=== PATIENT | female | born 1935 | race Caucasian/White ===

== ENCOUNTER 2016-11-25 21:21 | Inpatient (IN) | payer MEDICARE, BC ==
[~2016-11-25] VITALS: Ht 165.1 cm; Wt 78.0 kg
--- NOTE | 2016-11-25 21:30 | NUR ---
To bed 6 a 81 yo female bibra with c/o of syncopal episode while watching tv. Patient is alert oriented x1, no s/s of acute distress. Breathing even and unlabored. When asked, what brought her here, she said "I don't know what happen." VSS stable. Patient is reporting lightheadedness. Safety measures observed. Awaiting for er md escobar.
[2016-11-25] MEDS ORDERED: IV NS 0.9% 500 ML BAG IV ONE (22:00)
[2016-11-25] MEDS ORDERED: IV SET PRIMARY 1 EA INFUS.SET MC ONE (22:06)
[2016-11-25] MEDS ORDERED: IV NS 0.9% 500 ML IV ONE (22:06)
[2016-11-25 22:17] LABS: BASOPHILS % (AUTO) 0.5 % (0.0-2.0); EOSINOPHILS # (AUTO) 0.3 /CMM (0.0-0.7); EOSINOPHILS % (AUTO) 3.6 % (0.0-6.0); HEMATOCRIT 30 % (33-45); HEMOGLOBIN 10.1 g/dL (11.5-14.8); LYMPHOCYTES # (AUTO) 1.8 /CMM (0.8-4.8); LYMPHOCYTES % (AUTO) 21.3 % (20.0-44.0); MEAN CORPUSCULAR HEMOGLOBIN 32 PG (26.0-33.0); MEAN CORPUSCULAR HGB CONC 34 g/dl (31.0-36.0); MEAN CORPUSCULAR VOLUME 94 fL (82-100); MONOCYTES # (AUTO) 0.8 /CMM (0.1-1.30); MONOCYTES % (AUTO) 9.2 % (2.0-12.0); NEUTROPHILS # (AUTO) 5.4 /CMM (1.8-8.9); NEUTROPHILS % (AUTO) 65.4 % (43.0-81.0); PLATELET COUNT (AUTO) 190 /CMM (150-450); RDW COEFFICIENT OF VARIATION 14.1 (11.5-15.0); RED BLOOD CELL COUNT(AUTO) 3.17 MIL/uL (4.0-5.2); WHITE BLOOD COUNT (AUTO) 8.3 K/uL (4.3-11.0)
--- NOTE | 2016-11-25 22:22 | NUR ---
patient to ct.
[2016-11-25 22:28] LABS: CALCIUM, SERUM 8.8 mg/dL (8.5-10.1); CARBON DIOXIDE 26 mmol/L (21-32); CHLORIDE 105 mmol/L (98-107); CREATININE 1.6 mg/dL (0.6-1.3); GLUCOSE 128 mg/dL (74-106); POTASSIUM 4.4 mmol/L (3.5-5.1); SODIUM SERUM 140 mmol/L (136-145); UREA NITROGEN, BLOOD 29 mg/dL (7-18)
[2016-11-25 22:35] LABS: TROPONIN I < 0.017 ng/mL (0.00-0.056)
[2016-11-25 22:36] LABS: INR 1.04 (0.87-1.13); PROTHROMBIN TIME 11.2 SECS (9.5-12.7)
[2016-11-25 22:42] LABS: ALANINE AMINOTRANSFERASE 6 U/L (12-78); ALBUMIN 3.2 g/dL (3.4-5.0); ALKALINE PHOSPHATASE 108 U/L (46-116); ASPARTATE AMINOTRANSFERASE 18 U/L (15-37); BILIRUBIN,DIRECT 0.1 mg/dL (0.0-0.2); BILIRUBIN,TOTAL 0.3 mg/dL (0.2-1.0); TOTAL PROTEIN, SERUM 6.3 g/dL (6.4-8.2)
[2016-11-25] MEDS ORDERED: IV NS 0.9% 1,000 ML IV PRN (22:59)
[2016-11-25] MEDS ORDERED: Z GUARD REMEDY 2 OZ OINT TP PRN (23:00)
[2016-11-25] MEDS ORDERED: ACETAMINOPHEN 325 MG TABLET PO PRN (23:00)
[2016-11-25] MEDS ORDERED: MAG HYDROX/AL HYDROX/SIMETH 30 ML UDC PO PRN (23:00)
[2016-11-25] MEDS ORDERED: HYDROCODONE/APAP 5/325MG 1 EACH TABLET PO PRN (23:00)
[2016-11-25] MEDS ORDERED: MAGNESIUM HYDROXIDE 30 ML UDC PO PRN (23:00)
[2016-11-25] MEDS ORDERED: ZOLPIDEM TARTRATE 5 MG TABLET PO PRN (23:00)
[2016-11-25] MEDS ORDERED: ONDANSETRON HCL/PF 4 MG/2 ML VIAL IVP PRN (23:00)
--- NOTE | 2016-11-25 23:05 | NUR ---
Urine collected via in-out cath, patient emili well, clear yellow urine collected and sent to lab.
--- NOTE | 2016-11-25 23:09 | NUR ---
Report given to Sai FIGUEROA RN for becky.
[2016-11-25 23:15] LABS: MAGNESIUM 1.5 mg/dL (1.8-2.4); PHOSPHORUS 3.9 mg/dL (2.5-4.9)
[2016-11-25 23:20] VITALS: BP 149/57
--- NOTE | 2016-11-25 23:20 | NUR ---
Transported to [facility] via als protocol, no incident noted.
--- NOTE | 2016-11-25 23:20 | NUR ---
PLACEMENT SPECIALIST INITIAL NOTE RECEIVED REPORT FROM LANE COONEY. PT ARRIVED TO THE UNIT VIA GURNEY WITH ER STAFF. DAUGHTER AT BEDSIDE. PT A/A/O X3. LUNG SOUNDS DIMINISHED. BOWEL SOUNDS PRESENT, DIAPER INTACT. PULSES PRESENT. SKIN INTACT. IV PATENT AND INTACT. DISCUSSED MEDICATIONS WITH DAUGHTER, SUCH KEPPRA AND SINEMET. ACCORDING TO THE DAUGTHER PT IS ON THESE MEDICATION DUE TO METASTATIC MELANOMA THAT SHE RECEIVED TREATMENT FOR BY CHEMO/RADIATION. AFTER TREATMENTS PT DEVELOPED A TREMOR. THESES MEDICATIONS ARE USED TO TREAT HER SHAKING HANDS. MED RECON UPDATED. DR PIERCE MADE AWARE. WILL CONTINUE TO MONITOR. BED IN LOW LOCKED POSITION, CALL LIGHT WITHIN REACH.
[2016-11-25] MEDS ORDERED: LORAZEPAM INJ 2 MG/ML VIAL IV PRN (23:30)
[2016-11-25] MEDS ORDERED: hydrALAZINE HCL 25 MG TABLET PO PRN (23:30)
[2016-11-25 23:40] LABS: BILIRUBIN,URINE NEGATIVE (NEGATIVE); BLOOD, URINE NEGATIVE Ery/uL (NEGATIVE); COLOR,URINE YELLOW (YELLOW); KETONES,URINE NEGATIVE (NEGATIVE); LEUKOCYTE ESTERASE ,URINE NEGATIVE (NEGATIVE); NITRITE, URINE NEGATIVE (NEGATIVE); PROTEIN,URINE NEGATIVE (NEGATIVE); UGLUCOSE NEGATIVE (NEGATIVE); UROBILINOGEN,URINE 0.2 EU/dL (0.2)
[2016-11-25 23:42] LABS: APPEARANCE,URINE CLEAR (CLEAR)
[2016-11-26] VITALS (9 sets, daily range): BP systolic 111–149; BP diastolic 47–57
[2016-11-26] MEDS ORDERED: ATEN25TA PO (00:47)
[2016-11-26] MEDS ORDERED: RANO500T3 PO (00:47)
[2016-11-26] MEDS ORDERED: MEMA10TA PO (00:47)
[2016-11-26] MEDS ORDERED: CARB1TAB21 PO (00:47)
[2016-11-26] MEDS ORDERED: LEVE500T20 PO (00:47)
[2016-11-26] MEDS ORDERED: ATOR20TA PO (00:47)
[2016-11-26] MEDS ORDERED: ISOS60TA4 PO (00:47)
[2016-11-26] MEDS ORDERED: Magnesium 1GM/D5W 100ML PREMIX 100 ML IV ONE (01:27)
[2016-11-26] MEDS ORDERED: SECONDARY IV SET 1 EA INFUS.SET MC ONE (01:27)
[2016-11-26] MEDS ORDERED: IV NS 0.9% 1,000 ML ONE (01:27)
[2016-11-26] MEDS: Magnesium 1GM/D5W 100ML PREMIX 100 ML IV SCH ×3 (01:32→03:40)
[2016-11-26] MEDS ORDERED: Magnesium 1GM/D5W 100ML PREMIX 200 ML IV ONE (02:32)
[2016-11-26 05:20] LABS: BASOPHILS % (AUTO) 0.4 % (0.0-2.0); EOSINOPHILS # (AUTO) 0.2 /CMM (0.0-0.7); EOSINOPHILS % (AUTO) 2.1 % (0.0-6.0); HEMATOCRIT 27 % (33-45); HEMOGLOBIN 9.1 g/dL (11.5-14.8); MEAN CORPUSCULAR HEMOGLOBIN 32 PG (26.0-33.0); MEAN CORPUSCULAR HGB CONC 34 g/dl (31.0-36.0); MEAN CORPUSCULAR VOLUME 93 fL (82-100); MONOCYTES # (AUTO) 0.8 /CMM (0.1-1.30); MONOCYTES % (AUTO) 10.1 % (2.0-12.0); NEUTROPHILS # (AUTO) 5.2 /CMM (1.8-8.9); NEUTROPHILS % (AUTO) 63.4 % (43.0-81.0); PLATELET COUNT (AUTO) 171 /CMM (150-450); RDW COEFFICIENT OF VARIATION 13.7 (11.5-15.0); RED BLOOD CELL COUNT(AUTO) 2.89 MIL/uL (4.0-5.2); WHITE BLOOD COUNT (AUTO) 8.1 K/uL (4.3-11.0)
[2016-11-26 05:24] LABS: CALCIUM, SERUM 8.6 mg/dL (8.5-10.1); CREATININE 1.5 mg/dL (0.6-1.3); MAGNESIUM 2.5 mg/dL (1.8-2.4); PHOSPHORUS 3.7 mg/dL (2.5-4.9); POTASSIUM 4.4 mmol/L (3.5-5.1)
[2016-11-26 05:27] LABS: THYROID STIMULATING HORMONE 0.892 uIU/mL (0.358-3.74)
--- NOTE | 2016-11-26 07:00 | NUR ---
RN NOTE RECEIVED ON BED ,RESPIRATION EVEN AND UNLABORED, ON RA NO SOB NOTED, A/OX3 , ON TLE SB IN 60'S , DIAPER INTACT. PULSES PRESENT. SKIN INTACT. L AC AND R HAND IV SITE IV SITES CDI, NS AT 75CC/HR RUNNING WELL, SR UP x3, BED IN LOW LOCKED POSITION, CALL LIGHT WITHIN REACH , CONTINUE TO MONITOR PT CLOSELY AND NOTIFY MD FOR ANY SIGNIFICANT CHANGES.
[2016-11-26] MEDS: LEVETIRACETAM SOL (5 ML) 100 MG/ML UDC PO SCH ×2 (08:28→21:43)
[2016-11-26] MEDS: ATENOLOL 25 MG TABLET PO SCH ×2 (08:29→17:04)
[2016-11-26] MEDS: ISOSORBIDE MONONITRATE (30MG) 30 MG TAB.SR.24H PO SCH (08:29)
[2016-11-26] MEDS: CARBIDOPA/LEVODOPA 25/100 MG 1 UDTAB PO SCH ×4 (08:30→21:43)
[2016-11-26] MEDS: PANTOPRAZOLE 40 MG TABLET.DR PO SCH (08:30)
[2016-11-26] MEDS: MEMANTINE HCL 5 MG TABLET PO SCH (08:30)
[2016-11-26] MEDS ORDERED: ENOXAPARIN SODIUM 40 MG/0.4 ML DISP.SYRIN SQ SCH (09:00)
[2016-11-26 09:43] LABS: IRON, SERUM 42 ug/dl (50-175); TOTAL IRON BINDING CAPACITY 185 ug/dl (250-450)
[2016-11-26 09:57] LABS: FERRITIN 352 ng/mL (8-388)
[2016-11-26] MEDS: ASPIRIN 81 MG TAB.CHEW PO SCH (10:04)
[2016-11-26] MEDS: ENOXAPARIN SODIUM 30 MG/0.3 ML DISP.SYRIN SQ SCH (10:04)
--- NOTE | 2016-11-26 12:00 | NUR ---
RN NOTES REDNESS AND SMALL BLOODY DRAINAGE NOTED ON THE R HAND IV SITE , H/D DISCONTINUED.
[2016-11-26] MEDS: IV NS 0.9% 1,000 ML IV PRN (15:33)
--- NOTE | 2016-11-26 18:42 | NUR ---
RN NOTES PT STABLE , RESPIRATION EVEN AND UNLABORED, NS AT 125CC/HR RUNNING VIA R AC IV SITE WITHOUT ANY PROBLEM,, PT DENIES ANY DISTRESS , MEDICATED PER MD ORDER , NO SIGNIFICANT CHANGES NOTED ON THIS SHIFT .
--- NOTE | 2016-11-26 19:00 | NUR ---
MS RN OPENING NOTES RECEIVED PATIENT IN BED IN STABLE CONDITION, IV SITE INTACT WITH S/S OF INFILTRATION. NO S/S OF DISTRESS, NO S/S OF DISTRESS NO SOB, NO CHEST PAIN. NO COMPLAINS OF PAIN, SAFE FREE ENVIRONMENT PROVIDED FREE OF CLUTTERS, WILL CONTINUE TO MONITOR, ON LOW BED TO ENSURE SAFETY, CALL LIGHT WITHIN REACH.
[2016-11-26 20:21] LABS: CREATININE, URINE 38.9 MG/DL (30.0-125.0); URINE TOTAL PROTEIN 15.3 mg/dL (0-11.9)
[2016-11-26] MEDS ORDERED: ATORVASTATIN 40 MG TABLET PO SCH (22:00)
[2016-11-27] MEDS: IV NS 0.9% 1,000 ML IV PRN (00:08)
[2016-11-27 04:00] VITALS: BP 137/49
--- NOTE | 2016-11-27 06:22 | NUR ---
MS RN CLOSING NOTES PATIENT COMFORTABLY ASLEEP AND EASILY AWAKEN, HEAD OF BED ELEVATED FOR BETTER LUNG EXPANSION. IV HYDRATION ONGOING NS AT 125 CC/HR, IV SITE NO S/S OF INFILTRATED, PATIENT DENIES PAIN AT THIS TIME. 0/10 RESPIRATIONS EVEN AND UNLABORED.NO S/S OF ACUTE DISTRESS, NO SOB, NO COUGH, NO CONGESTION, SKIN WARM AND DRY TO TOUCH, AFEBRILE, ALL NURSING CARE NEEDS PROVIDED AND RENDERED, NEEDS ATTENDED AND ANTICIPATED, KEPT CLEAN AND DRY AND COMFORTABLE, BLADDER NOT DISTENDED, GOOD SKIN CARE PROVIDED. ABDOMEN SOFT AND NON TENDER. NO C/O OF CONSTIPATION. ALL DUE MEDS WAS GIVEN TOLERATED. FREQUENT VISUAL CHECK DONE FOR SAFETY EVERY 2 HOURS. SAFE HAZARD FREE ENVIRONMENT PROVIDED. CALL LIGHT WITHIN EASY TO REACH, ON LOW BED AT ALL TIMES TO ENSURE SAFETY, WILL ENDORSE TO THE NEXT SHIFT CONTINUE PLAN OF CARE
[2016-11-27 06:23] LABS: BASOPHILS % (AUTO) 0.4 % (0.0-2.0); EOSINOPHILS # (AUTO) 0.3 /CMM (0.0-0.7); EOSINOPHILS % (AUTO) 3.8 % (0.0-6.0); HEMATOCRIT 29 % (33-45); HEMOGLOBIN 9.6 g/dL (11.5-14.8); LYMPHOCYTES # (AUTO) 1.7 /CMM (0.8-4.8); LYMPHOCYTES % (AUTO) 24.4 % (20.0-44.0); MEAN CORPUSCULAR HEMOGLOBIN 32 PG (26.0-33.0); MEAN CORPUSCULAR HGB CONC 34 g/dl (31.0-36.0); MEAN CORPUSCULAR VOLUME 93 fL (82-100); MONOCYTES # (AUTO) 0.7 /CMM (0.1-1.30); MONOCYTES % (AUTO) 9.4 % (2.0-12.0); NEUTROPHILS # (AUTO) 4.4 /CMM (1.8-8.9); PLATELET COUNT (AUTO) 168 /CMM (150-450); RDW COEFFICIENT OF VARIATION 13.7 (11.5-15.0); RED BLOOD CELL COUNT(AUTO) 3.06 MIL/uL (4.0-5.2); WHITE BLOOD COUNT (AUTO) 7.1 K/uL (4.3-11.0)
[2016-11-27 07:41] LABS: ALBUMIN 3.1 g/dL (3.4-5.0); BILIRUBIN,TOTAL 0.3 mg/dL (0.2-1.0); CALCIUM, SERUM 8.3 mg/dL (8.5-10.1); CREATININE 1.4 mg/dL (0.6-1.3); MAGNESIUM 1.9 mg/dL (1.8-2.4); PHOSPHORUS 3.5 mg/dL (2.5-4.9); POTASSIUM 3.8 mmol/L (3.5-5.1); TOTAL PROTEIN, SERUM 5.9 g/dL (6.4-8.2)
[2016-11-27 08:00] VITALS: BP 132/46
--- NOTE | 2016-11-27 08:00 | NUR ---
ms rn note patient in bed . all needs attended , not in acute distress ,having breakfast , able to eat self, bed in lowest and locked position , on ra no sob noted , call ligh within reach , plan of care discussed with patient , on ivf as ordered, hl on lac intact, no s\s infection noted , will cont to monitor closely
[2016-11-27] MEDS: PANTOPRAZOLE 40 MG TABLET.DR PO SCH (08:05)
[2016-11-27] MEDS: LEVETIRACETAM SOL (5 ML) 100 MG/ML UDC PO SCH (08:05)
[2016-11-27] MEDS: CARBIDOPA/LEVODOPA 25/100 MG 1 UDTAB PO SCH ×3 (08:05→16:33)
[2016-11-27] MEDS: ASPIRIN 81 MG TAB.CHEW PO SCH (08:05)
[2016-11-27] MEDS: ATENOLOL 25 MG TABLET PO SCH ×2 (08:06→16:33)
[2016-11-27] MEDS: ISOSORBIDE MONONITRATE (30MG) 30 MG TAB.SR.24H PO SCH (08:07)
[2016-11-27] MEDS: ENOXAPARIN SODIUM 30 MG/0.3 ML DISP.SYRIN SQ SCH (08:08)
[2016-11-27] MEDS: MEMANTINE HCL 5 MG TABLET PO SCH (08:12)
--- NOTE | 2016-11-27 12:00 | NUR ---
MS RN NOTE HAVING LUNCH , ABLE TO EAT SELF ALL NEEDS ATTENDED
--- NOTE | 2016-11-27 13:54 | NUR ---
MS RN NOTE SEEN BY PT , ABLE TO SIT UP FROM BED TO STAND UP WITH MAX ASSISTANCE, KEEP CLEAN DRY , NOT IN ACUTE DISTRESS
--- NOTE | 2016-11-27 15:33 | NUR ---
MS RN NOTE SPOKE WITH DR FERNANDO PHILIP PATIENT WILL BE DISCHARGE
--- NOTE | 2016-11-27 16:27 | NUR ---
MS RN NOTE CALLED TO FACILITY SPOKE WITH KATTY THEODORE REPORT GIVEN , CALLED DAUGHTER LEFT A MASSAGE THAT PATENT WILL BE DISCHARGE AT 1700
[2016-11-27 16:33] VITALS: BP 121/55
--- NOTE | 2016-11-27 17:19 | NUR ---
MS RN NOTE AMBULANCE ARRIVED REPORT GIVEN ,TAKEN TO FACILITY WITH STABLE CONDITION, CALLED TO DAUGHTER ANYA X 2 ,LEFT A MASSAGE THAT PATIENT WILL BE D\C AT 1700
== END 2016-11-27 17:31 | DRG 73 ==
LOC: ER 21:25 → TELE-TD 22:34 → TELE1 23:31 → MEDSG1 11-26 10:53
PROVIDERS: ADMIT Internal Medicine; ATTEND Internal Medicine
DX: G90.8 Other disorders of autonomic nervous system (principal); N17.0 Acute kidney failure with tubular necrosis; G45.9 Transient cerebral ischemic attack, unspecified; E44.0 Moderate protein-calorie malnutrition; N18.4 Chronic kidney disease, stage 4 (severe); C78.7 Secondary malignant neoplasm of liver and intrahepatic bile duct; C79.31 Secondary malignant neoplasm of brain; J98.11 Atelectasis; Z86.73 Personal history of transient ischemic attack (TIA), and cerebral infarction without residual deficits; G40.909 Epilepsy, unspecified, not intractable, without status epilepticus; I12.9 Hypertensive chronic kidney disease with stage 1 through stage 4 chronic kidney disease, or unspecified chronic kidney disease; E78.5 Hyperlipidemia, unspecified; K21.9 Gastro-esophageal reflux disease without esophagitis; Z96.649 Presence of unspecified artificial hip joint; F03.90 Unspecified dementia, unspecified severity, without behavioral disturbance, psychotic disturbance, mood disturbance, and anxiety; Z92.3 Personal history of irradiation; D64.9 Anemia, unspecified; G20 Parkinson's disease; C43.9 Malignant melanoma of skin, unspecified; Z68.28 Body mass index [BMI] 28.0-28.9, adult
CPT/HCPCS: 36415; 70450-TC; 71010-TC; 80048-TC; 80053-TC; 80061-TC; 80076-TC; 81000-TC; 82570-TC; 82728-TC; 83540-TC; 83735-TC; 84100-TC; 84155-TC; 84300-TC; 84443-TC; 84484-TC; 85025-TC; 85730-TC; 86850-TC; 87040-TC; 87081-TC; 93307-TC; 93880-TC; 97001-TC; 97110-TC; 97530-TC; J1650; J1953; J3475; J7030; J7040

== ENCOUNTER 2016-11-29 15:09 | Emergency (ER) | payer MEDICARE, BC ==
[~2016-11-29] VITALS: Ht 162.6 cm; Wt 75.7 kg
[~2016-11-29 15:09] MED LIST: ATEN25TA PO; ATOR20TA PO; CARB1TAB21 PO; ISOS60TA4 PO; LEVE500T20 PO; MEMA10TA PO; RANO500T3 PO
--- NOTE | 2016-11-29 15:15 | NUR ---
LEO 89 FROM [facility] C/O SYNCOPAL EPISODE, NO TRAUMA. NAD NOTED. VSS. SAFETY AND COMFORT MEASURES PROVIDED. WILL MONITOR.
--- NOTE | 2016-11-29 15:40 | NUR ---
Patient is resting comfortably in bed with eyes closed. Easily aroused. VSS
[2016-11-29 16:08] LABS: BASOPHILS % (AUTO) 0.3 % (0.0-2.0); EOSINOPHILS # (AUTO) 0.2 /CMM (0.0-0.7); EOSINOPHILS % (AUTO) 2.3 % (0.0-6.0); HEMATOCRIT 33 % (33-45); HEMOGLOBIN 10.9 g/dL (11.5-14.8); LYMPHOCYTES # (AUTO) 1.1 /CMM (0.8-4.8); LYMPHOCYTES % (AUTO) 12.9 % (20.0-44.0); MEAN CORPUSCULAR HEMOGLOBIN 31 PG (26.0-33.0); MEAN CORPUSCULAR HGB CONC 33 g/dl (31.0-36.0); MEAN CORPUSCULAR VOLUME 93 fL (82-100); MONOCYTES # (AUTO) 0.6 /CMM (0.1-1.30); MONOCYTES % (AUTO) 7.1 % (2.0-12.0); NEUTROPHILS % (AUTO) 77.4 % (43.0-81.0); PLATELET COUNT (AUTO) 198 /CMM (150-450); RED BLOOD CELL COUNT(AUTO) 3.54 MIL/uL (4.0-5.2); WHITE BLOOD COUNT (AUTO) 8.9 K/uL (4.3-11.0)
[2016-11-29 16:18] LABS: CALCIUM, SERUM 8.9 mg/dL (8.5-10.1); CARBON DIOXIDE 27 mmol/L (21-32); CHLORIDE 107 mmol/L (98-107); CREATININE 1.5 mg/dL (0.6-1.3); GLUCOSE 103 mg/dL (74-106); POTASSIUM 4.4 mmol/L (3.5-5.1); SODIUM SERUM 141 mmol/L (136-145); UREA NITROGEN, BLOOD 27 mg/dL (7-18)
[2016-11-29 16:21] LABS: INR 1.08 (0.87-1.13); PROTHROMBIN TIME 11.2 SECS (9.5-12.7)
[2016-11-29 16:30] LABS: TROPONIN I < 0.017 ng/mL (0.00-0.056)
--- NOTE | 2016-11-29 17:01 | NUR ---
ETA 1900
--- NOTE | 2016-11-29 17:02 | NUR ---
[facility]
--- NOTE | 2016-11-29 17:10 | NUR ---
Patient discharged to home in stable condition. Written and verbal after care instructions given. Patient verbalizes understanding of instruction.IV removed. Catheter intact and site benign. Pressure and 4x4 applied to site. No bleeding noted.
--- NOTE | 2016-11-29 17:11 | NUR ---
CANCELLED AMBULANCE - PT BEING TRANSPORTED BY FAMILY
[2016-11-29 17:59] VITALS: BP 130/71
== END 2016-11-29 18:00 | disposition home or self-care (01) ==
LOC: ER 15:14
DX: R55 Syncope and collapse (principal); E78.5 Hyperlipidemia, unspecified; I10 Essential (primary) hypertension
CPT/HCPCS: 36415; 71010; 80048; 84484; 85025; 85730; 93005; 99285; A4606; Z7610

== ENCOUNTER 2017-01-21 11:23 | Inpatient (IN) | payer MEDICARE, BC ==
[~2017-01-21] VITALS: Ht 162.6 cm; Wt 72.6 kg
[2017-01-21] MEDS: PROSOURCE / PROSTAT (PYXIS) 30 ML UDC PO SCH (09:00)
--- NOTE | 2017-01-21 11:30 | NUR ---
BIB RA 90 FROM A CARE FACILITY S/P SYNCOPE. PER REPORT PT WAS ASSISTED FROM THE GROUND. PT AAOX3. DENIES PAIN AT THIS TIME. VSS. SEEN BY MD FOR EVAL. SAFETY AND COMFORT MEASURES PROVIDED. WILL MONITOR.
--- NOTE | 2017-01-21 11:50 | NUR ---
IV ACCESS STARTED. PONY CYLINDER PRESS OPERATOR AT FOR BLOOD DRAW. URINE SAMPLE OBTAINED, SENT.
[2017-01-21] MEDS ORDERED: IV NS 0.9% 1,000 ML BAG IV ONE (12:00)
[2017-01-21 12:09] LABS: BASOPHILS % (AUTO) 0.4 % (0.0-2.0); EOSINOPHILS # (AUTO) 0.4 /CMM (0.0-0.7); EOSINOPHILS % (AUTO) 5.8 % (0.0-6.0); HEMATOCRIT 29 % (33-45); HEMOGLOBIN 9.3 g/dL (11.5-14.8); LYMPHOCYTES # (AUTO) 1.2 /CMM (0.8-4.8); LYMPHOCYTES % (AUTO) 19.3 % (20.0-44.0); MEAN CORPUSCULAR HEMOGLOBIN 29 PG (26.0-33.0); MEAN CORPUSCULAR HGB CONC 32 g/dl (31.0-36.0); MEAN CORPUSCULAR VOLUME 90 fL (82-100); MONOCYTES # (AUTO) 0.6 /CMM (0.1-1.30); MONOCYTES % (AUTO) 9.4 % (2.0-12.0); NEUTROPHILS # (AUTO) 3.9 /CMM (1.8-8.9); NEUTROPHILS % (AUTO) 65.1 % (43.0-81.0); PLATELET COUNT (AUTO) 309 /CMM (150-450); RDW COEFFICIENT OF VARIATION 12.1 (11.5-15.0); RED BLOOD CELL COUNT(AUTO) 3.21 MIL/uL (4.0-5.2); WHITE BLOOD COUNT (AUTO) 6.1 K/uL (4.3-11.0)
[2017-01-21] MEDS ORDERED: IV NS 0.9% 1,000 ML ONE (12:11)
[2017-01-21] MEDS ORDERED: IV SET PRIMARY PUMP SET 1 EA INFUS.SET MC ONE ×2 (12:12→15:36)
[2017-01-21 12:18] LABS: CALCIUM, SERUM 8.8 mg/dL (8.5-10.1); CARBON DIOXIDE 30 mmol/L (21-32); CHLORIDE 105 mmol/L (98-107); CREATININE 1.2 mg/dL (0.6-1.3); GLUCOSE 100 mg/dL (74-106); POTASSIUM 4.3 mmol/L (3.5-5.1); SODIUM SERUM 140 mmol/L (136-145); UREA NITROGEN, BLOOD 19 mg/dL (7-18)
--- NOTE | 2017-01-21 12:20 | NUR ---
PT TAKEN TO CT.
[2017-01-21 12:22] LABS: BILIRUBIN,URINE Negative (NEGATIVE); BLOOD, URINE Negative Ery/uL (NEGATIVE); KETONES,URINE Negative (NEGATIVE); LEUKOCYTE ESTERASE ,URINE Negative (NEGATIVE); NITRITE, URINE Negative (NEGATIVE); PH,URINE 8.5 (5.0-8.0); PROTEIN,URINE Trace mg/dl (NEGATIVE); UGLUCOSE Negative (NEGATIVE); UROBILINOGEN,URINE 0.2 EU/dL (0.2)
[2017-01-21 12:27] LABS: TROPONIN I < 0.017 ng/mL (0.00-0.056)
[2017-01-21 12:28] LABS: APPEARANCE,URINE Hazy (CLEAR); COLOR,URINE Dark Yellow (YELLOW)
[2017-01-21] MEDS ORDERED: ISOS120T9 PO (12:30)
[2017-01-21] MEDS ORDERED: AMLO2.5T PO (12:30)
[2017-01-21] MEDS ORDERED: AMIN30LI4 PO (12:30)
[2017-01-21] MEDS ORDERED: LEVE250T2 PO (12:30)
[2017-01-21] MEDS ORDERED: CLOP75TA2 PO (12:30)
[2017-01-21] MEDS ORDERED: ATOR40TA PO (12:30)
[2017-01-21] MEDS ORDERED: SERT25TA5 PO (12:30)
[2017-01-21] MEDS ORDERED: MULT-659 PO (12:30)
[2017-01-21] MEDS ORDERED: MAGN400T26 PO (12:30)
[2017-01-21] MEDS ORDERED: MAGN400O6 PO (12:33)
[2017-01-21] MEDS ORDERED: ZINC220C8 PO (12:33)
[2017-01-21] MEDS ORDERED: NA P133E RC (12:33)
[2017-01-21] MEDS ORDERED: ASCO500T9 PO (12:33)
[2017-01-21] MEDS ORDERED: CHOL100044 PO (12:33)
[2017-01-21] MEDS ORDERED: MECL-102 PO (12:33)
[2017-01-21] MEDS ORDERED: BISA10SU8 RC (12:33)
[2017-01-21] MEDS ORDERED: ACET-868 PO (12:33)
[2017-01-21 12:36] LABS: INR 1.07 (0.87-1.13); PROTHROMBIN TIME 11.1 SECS (9.5-12.7)
[2017-01-21 12:37] LABS: BACTERIA,URINE None seen /HPF (None Seen); MUCUS,URINE Few /LPF (None Seen); SQUAMOUS EPITHELIAL CELL,UR Few /HPF (None Seen)
--- NOTE | 2017-01-21 13:43 | NUR ---
CALLED (PCP), TRANSFERRED CALL TO
--- NOTE | 2017-01-21 13:56 | NUR ---
CALLED (PCP), TRANSFERRED CALL TO
--- NOTE | 2017-01-21 14:00 | NUR ---
DR.RUTHERFORD SAE OPERATOR GROUND BASED AIR DEFENCE
--- NOTE | 2017-01-21 14:02 | NUR ---
CALLED NURSING SUP. FOR TELE BED
--- NOTE | 2017-01-21 14:51 | NUR ---
REPORT GIVEN TO ERNESTO COONEY FOR TELE [phone]
[2017-01-21] MEDS ORDERED: ONDANSETRON HCL/PF 4 MG/2 ML VIAL IVP PRN (15:00)
[2017-01-21] MEDS ORDERED: BISACODYL SUPP (10 MG) 10 MG/SUPP.RECT SUPP.RECT RC PRN (15:00)
[2017-01-21] MEDS ORDERED: MECLIZINE HCL 25 MG TABLET PO PRN (15:00)
[2017-01-21] MEDS ORDERED: ACETAMINOPHEN 325 MG TABLET PO PRN ×2 (15:00)
[2017-01-21] MEDS ORDERED: NA PHOS,M-B/NA PHOS,DI-BA 1 EA ENEMA RC PRN (15:00)
[2017-01-21] MEDS ORDERED: Z GUARD REMEDY 2 OZ OINT TP PRN (15:00)
[2017-01-21] MEDS ORDERED: HYDROCODONE/APAP 5/325MG 1 EACH TABLET PO PRN (15:00)
[2017-01-21] MEDS ORDERED: MAGNESIUM HYDROXIDE 30 ML UDC PO PRN ×2 (15:00)
[2017-01-21] MEDS ORDERED: ZOLPIDEM TARTRATE 5 MG TABLET PO PRN (15:00)
[2017-01-21] MEDS ORDERED: MAG HYDROX/AL HYDROX/SIMETH 30 ML UDC PO PRN (15:00)
[2017-01-21 16:00] VITALS: BP 128/65
[2017-01-21] MEDS: LEVETIRACETAM (250 MG) 250 MG TABLET PO SCH (16:32)
[2017-01-21] MEDS: ENOXAPARIN SODIUM 30 MG/0.3 ML DISP.SYRIN SQ SCH (16:32)
[2017-01-21] MEDS: IV NS 0.9% 1,000 ML IV PRN (16:35)
[2017-01-21] MEDS ORDERED: RANOLAZINE 500 MG PO SCH (17:00)
--- NOTE | 2017-01-21 18:10 | NUR ---
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
--- NOTE | 2017-01-21 19:30 | NUR ---
OUTSIDE SALESMAN NOTES RECEIVED PATIENT IN BED AWAKE ALERT AND VERBALLY RESPONSIVE, IN NO APPARENT DISTRESS, NO SOB NOTED, DENIES PAIN. PATIENT NOTED WITH FACIAL DROOPING ON THE LEFT SIDE. IV LINE PATENT, INFUSING NS AT 75CC/HR. ALL NEEDS MET KEPT CLEAN AND DRY, CALL LIGHT WITHIN REACH.
[2017-01-21 20:00] VITALS: BP 134/62
--- NOTE | 2017-01-21 20:38 | NUR ---
REFUELING RAMP ATTENDANT NOTES DAUGHTER ZACHARIAH CAME TO VISIT THE PATENT AND PER DAUGHTER PATIENT HAS BEEN ON CHOPPED FOOD AND THICKENED LIQUIDS AFTER THE CVA. DAUGHTER REQUESTED FOR PATENT TO HAVE APPLE SAUCE, PATIENT TOLERATED WELL.
[2017-01-21] MEDS ORDERED: ATORVASTATIN 40 MG TABLET PO SCH (22:00)
[2017-01-22] VITALS (7 sets, daily range): BP systolic 122–134; BP diastolic 55–65
--- NOTE | 2017-01-22 04:21 | NUR ---
ADHESIVE BANDAGE MACHINE OPERATOR NOTES PATIENT IN SLEEPING, IN NO APPARENT DISTRESS, NO SOB NOTED. KEPT CLEAN AND DRY.
[2017-01-22] MEDS: IV NS 0.9% 1,000 ML IV PRN (04:31)
--- NOTE | 2017-01-22 06:49 | NUR ---
MANAGER MEETING MS NOTES. PATIENT IN NO APPARENT DISTRESS, DENIES SOB, DENIES PAIN. NPO EXCEPT MEDS, PENDING SWALLOW EVAL. PATIENT TOLERATES SWALLOWING MEDIATIONS MIXED WITH APPLE SAUCE WELL. IV LINE PATENT, INFUSING NS AT 75CC/HR. ALL NEEDS MET, KEPT CLEAN AND DRY.
[2017-01-22 07:01] LABS: BASOPHILS % (AUTO) 0.7 % (0.0-2.0); EOSINOPHILS # (AUTO) 0.3 /CMM (0.0-0.7); EOSINOPHILS % (AUTO) 4.9 % (0.0-6.0); HEMATOCRIT 27 % (33-45); HEMOGLOBIN 9.2 g/dL (11.5-14.8); LYMPHOCYTES # (AUTO) 1.6 /CMM (0.8-4.8); LYMPHOCYTES % (AUTO) 24.4 % (20.0-44.0); MEAN CORPUSCULAR HEMOGLOBIN 30 PG (26.0-33.0); MEAN CORPUSCULAR HGB CONC 34 g/dl (31.0-36.0); MEAN CORPUSCULAR VOLUME 89 fL (82-100); MONOCYTES # (AUTO) 0.6 /CMM (0.1-1.30); MONOCYTES % (AUTO) 9.6 % (2.0-12.0); NEUTROPHILS # (AUTO) 3.9 /CMM (1.8-8.9); NEUTROPHILS % (AUTO) 60.4 % (43.0-81.0); PLATELET COUNT (AUTO) 268 /CMM (150-450); RED BLOOD CELL COUNT(AUTO) 3.08 MIL/uL (4.0-5.2); WHITE BLOOD COUNT (AUTO) 6.4 K/uL (4.3-11.0)
[2017-01-22 07:22] LABS: CALCIUM, SERUM 8.2 mg/dL (8.5-10.1); CARBON DIOXIDE 26 mmol/L (21-32); CHLORIDE 105 mmol/L (98-107); CREATININE 1.1 mg/dL (0.6-1.3); GLUCOSE 75 mg/dL (74-106); MAGNESIUM 1.6 mg/dL (1.8-2.4); PHOSPHORUS 3.6 mg/dL (2.5-4.9); POTASSIUM 3.8 mmol/L (3.5-5.1); SODIUM SERUM 141 mmol/L (136-145); UREA NITROGEN, BLOOD 15 mg/dL (7-18)
[2017-01-22 07:31] LABS: CHOLESTEROL 144 mg/dL (<200); HDL CHOLESTEROL 33 mg/dL (40-60); LDL 77 mg/dL (0-99); TRIGLYCERIDES 134 mg/dL (30-150)
--- NOTE | 2017-01-22 07:55 | NUR ---
RN OPENING NOTES RECEIVED PATIENT IN BED ASLEEP WITH HEAD OF BED ELEVATED, NO SOB OR DISTRESS NOTED. PATIENT ON TELE MONITOR SR HEART RATE OF 76. ALERT AND ORIENTED TIMES . IV INTACT AND PATENT. KEPT PATIENT CLEAN AND COMFORTABLE IN BED, CALL LIGHT WITHIN PATIENT REACH, WILL CONTINUE TO MONITOR ACCORDINGLY.
[2017-01-22] MEDS ORDERED: CLOPIDOGREL BISULFATE 75 MG TABLET PO SCH (09:00)
--- NOTE | 2017-01-22 09:13 | NUR ---
WOUND CARE CONSULT: PT REFUSED TO TURN FOR SKIN ASSESSMENT. PT ON ISOFLEX LOW AIRLOSS BED. WILL SEE PT PT CONDITION PERMITS. DISCUSSED SKIN PROTECTION WITH NURSING STAFF. MD IN AGREEMENT WITH PLAN OF CARE.
[2017-01-22] MEDS: ZINC SULFATE 220 MG CAPSULE PO SCH (09:17)
[2017-01-22] MEDS: CHOLECALCIFEROL 1,000 UNIT TABLET (VIT D3) PO SCH (09:17)
[2017-01-22] MEDS: MULTIVIT, IRON, MIN NO. 8, FA 1 TAB TABLET PO SCH (09:23)
[2017-01-22] MEDS: MAGNESIUM OXIDE 400 MG TABLET PO SCH (09:23)
[2017-01-22] MEDS: SERTRALINE HCL 25 MG TABLET PO SCH (09:24)
[2017-01-22] MEDS: PANTOPRAZOLE 40 MG TABLET.DR PO SCH (09:24)
[2017-01-22] MEDS: LEVETIRACETAM (250 MG) 250 MG TABLET PO SCH ×2 (09:24→17:47)
[2017-01-22] MEDS: MEMANTINE HCL 5 MG TABLET PO SCH ×2 (09:24→17:47)
[2017-01-22] MEDS: PROSOURCE / PROSTAT (PYXIS) 30 ML UDC PO SCH (09:25)
[2017-01-22] MEDS ORDERED: IV SET PRIMARY PUMP SET 1 EA INFUS.SET MC ONE (12:19)
[2017-01-22] MEDS ORDERED: SECONDARY IV SET 1 EA INFUS.SET MC ONE (12:24)
[2017-01-22] MEDS: Magnesium 1GM/D5W 100ML PREMIX 100 ML IV SCH ×2 (12:28→14:24)
--- NOTE | 2017-01-22 13:00 | NUR ---
RN NOTES I ASKED THE SON IN LAW TO BRING THE HOME MEDICATION RANEXA PER PHARMACY'S REQUEST BECAUSE WE DO NOT CARRY THAT MEDICATION AND SON IN LAW AGREED TO BRING IT LATER TODAY.
--- NOTE | 2017-01-22 16:30 | NUR ---
RN NOTES SON IN LAW WILL COME TO SIGN FORMS TO CONSENT TO REQUEST PREVIOUS MRI'S. SON IN LAW ALSO STATED THAT PATIENT CAN NOT HAVE MRI WITH CONTRAST DUE TO LIVER FUNCTION.
--- NOTE | 2017-01-22 19:06 | NUR ---
RN CLOSING NOTES ALL NEEDS PROVIDED, ATTENDED, AND ANTICIPATED. ON TELE MONITOR SR HEART RATE 70. KEPT PATIENT CLEAN AND COMFORTABLE IN BED. CALL LIGHT WITHIN PATIENT REACH, WILL CONTINUE TO MONITOR ACCORDINGLY. ENDORSED TO NEXT SHIFT RN TO CONTINUE CARE.
--- NOTE | 2017-01-22 20:00 | NUR ---
MS RN NOTE RECEIVED PATIENT AWAKE AND ALERT X2 IN BED. NO RESPIRATORY DISTRESS OR SOB NOTED. DENIES ANY PAIN AT THIS TIME. NO SYNCOPE AT THIS TIME. IV SITE INTACT, WITH NO INFILTRATION NOTED. NECTAR THICK WATER AT BEDSIDE. FAMILY AT BEDSIDE. PROVIDED DAUGHTER WITH CONSENT FORM TO OBTAIN BRAIN MRI RESULTS FROM [facility]. CONSENT SIGNED BY DAUGHTER AND PLACED IN CHART. FAX TO MEDICAL RECORDS AT [facility] IN AM. FAMILY CONCERNED ABOUT PATIENT HAVING ANOTHER MRI OF THE BRAIN, SINCE SHE ALREADY HAD ON E IN NOVEMBER. CALLED TO INFORM HER. WAITING FOR CALL BACK. PATIENT COMFORTABLE AT THIS TIME. BED LOCKED AND IN LOWEST POSITION. SIDE RAILS UP, CALL LIGHT WITHIN REACH. WILL CONTINUE TO MONITOR.
--- NOTE | 2017-01-22 21:17 | NUR ---
Patient resides at the [facility] [phone]. She ambulates with assistive devices, rfequires min-mod assist with adl's.She has adequate DME,homehealth provided by [facility]. Family involved and supportive with plan of care Priscila (dtr) [phone] / Aroldo son in law [phone] Addendum: 01/22/17 at 2118 by KATTY LOYD RN Amended: Links added.
[2017-01-22] MEDS: ENOXAPARIN SODIUM 30 MG/0.3 ML DISP.SYRIN SQ SCH (22:06)
[2017-01-23 01:30] VITALS: BP 124/55
--- NOTE | 2017-01-23 06:20 | NUR ---
MS RN NOTE PATIENT STABLE. NO S/S OF SYNCOPE, RESPIRATORY DISTRESS, OR SOB. ALL NEEDS MET AND ATTENDED TO. REFUSED AM LABS. WILL ENDORSE TO DAY SHIFT FOR JUANIS.
[2017-01-23] MEDS: PANTOPRAZOLE 40 MG TABLET.DR PO SCH (06:36)
--- NOTE | 2017-01-23 07:23 | NUR ---
RN MS OPENING NOTES RECEIVED PATIENT IN BED ASLEEP WITH HEAD OF BED ELEVATED, NO SOB OR DISTRESS NOTED. ALERT AND ORIENTED TIMES 1-2, VERBALLY RESPONSIVE AND ABLE TO MAKE NEEDS KNOWN. IV INTACT AND PATENT. KEPT PATIENT CLEAN AND COMFORTABLE IN BED, CALL LIGHT WITHIN PATIENT REACH, WILL CONTINUE TO MONITOR ACCORDINGLY.
[2017-01-23 08:00] VITALS: BP 133/59
[2017-01-23] MEDS: SERTRALINE HCL 25 MG TABLET PO SCH (08:40)
[2017-01-23] MEDS: CHOLECALCIFEROL 1,000 UNIT TABLET (VIT D3) PO SCH (08:40)
[2017-01-23] MEDS: LEVETIRACETAM (250 MG) 250 MG TABLET PO SCH ×2 (08:41→17:36)
[2017-01-23] MEDS: ZINC SULFATE 220 MG CAPSULE PO SCH (08:41)
[2017-01-23] MEDS: MULTIVIT, IRON, MIN NO. 8, FA 1 TAB TABLET PO SCH (08:42)
[2017-01-23] MEDS: MAGNESIUM OXIDE 400 MG TABLET PO SCH (08:42)
[2017-01-23] MEDS: PROSOURCE / PROSTAT (PYXIS) 30 ML UDC PO SCH (08:42)
[2017-01-23] MEDS: MEMANTINE HCL 5 MG TABLET PO SCH ×2 (08:42→17:37)
--- NOTE | 2017-01-23 09:15 | NUR ---
RN NOTES CONSENT FORMS FAXED TO [facility] REQUESTING PREVIOUS MRI'S.
[2017-01-23 10:07] LABS: IRON, SERUM 27 ug/dl (50-175); TOTAL IRON BINDING CAPACITY 160 ug/dl (250-450)
[2017-01-23 10:13] LABS: FERRITIN 458 ng/mL (8-388)
--- NOTE | 2017-01-23 12:09 | NUR ---
RN NOTES I PAGED DR. SINGLETON TO CLARIFY MEDICATIONS PER FAMILY REQUEST.
--- NOTE | 2017-01-23 12:17 | NUR ---
RN NOTES I SPOKE TO DR. SINGLETON ON THE PHONE AND HE SAID THAT HE IS GOING TO CHECK THE HOME MEDS TO SEE IF HE WILL CONTINUE ATENOLOL FAMILY REQUESTED.
[2017-01-23 16:00] VITALS: BP 116/58
--- NOTE | 2017-01-23 19:19 | NUR ---
RN CLOSING NOTES ALL NEEDS PROVIDED, ATTENDED, AND ANTICIPATED. KEPT PATIENT CLEAN AND COMFORTABLE IN BED. CALL LIGHT WITHIN PATIENT REACH, WILL CONTINUE TO MONITOR ACCORDINGLY. ENDORSED TO NEXT SHIFT RN TO CONTINUE CARE.
--- NOTE | 2017-01-23 19:30 | NUR ---
RN NOTES: RECEIVED AWAKE LYING ON BED COMFORTABLE, A/OX2,NO SIGN OF PAIN AND DISCOMFORT IN FACIAL EXPRESSION, PLEASANT AND VERY FRIENDLY, COOPERATIVE AND ABLE TO MAKE NEEDS KNOWN,NO SIGN OF RESPIRATORY DISTRESS,CANNULA IN SITE RIGHT HAND G#18,OBSERVE UNIVERSAL PRECAUTION, FALL,SAFETY&ASPIRATION PRECAUTION,CALL LIGHT WITHIN EASY REACH,BED LOW AND LOCKED, SIDE RAILS UP X3.
[2017-01-23 20:00] VITALS: BP 118/55
[2017-01-23] MEDS: ENOXAPARIN SODIUM 30 MG/0.3 ML DISP.SYRIN SQ SCH (21:15)
--- NOTE | 2017-01-24 05:03 | NUR ---
RN NOTES: ASLEEP IN THE NIGHT, CALL LIGHT WITHIN EASY REACH,CALLS AND NEEDS ATTENDED.NO COMPLAINTS OF SOB AND PAIN.
--- NOTE | 2017-01-24 05:44 | NUR ---
RN NOTES: MORNING CARE DONE, CLEAN AND CHANGE, TURNING AND REPOSITIONING DONE,FALL AND SAFETY PRECAUTION OBSERVED,CALL LIGHT WITHIN EASY REACH, BED LOW AND LOCKED, SIDE RAILS UP X3.
--- NOTE | 2017-01-24 06:39 | NUR ---
RN NOTES: ENDORSED ASLEEP FOR CONTINUITY OF CARE, CALL LIGHT WITHIN REACH, NO PAIN OR DISCOMFORT NOTED.
--- NOTE | 2017-01-24 07:20 | NUR ---
MS RN OPENING NOTES RECEIVED PT. FROM NIGHTSHIFT NURSE IN STABLE CONDITION. PT. IS A/0 X2 (PERSON, PLACE). NO SOB OR SIGNS OF DISTRESS NOTED. BREATHING IS EVEN AND UNLABORED. IV PRESENT ON RIGHT HAND 18GM, PATENT AND INTACT. NO REDNESS OR SIGNS OF INFILTRATION NOTED. BED IN LOW LOCKED POSITION, SIDE RAILS UP X3, CALL LIGHT WITHIN REACH. WILL CONTINUE TO MONITOR.
[2017-01-24 08:00] VITALS: BP 145/66
[2017-01-24] MEDS: LEVETIRACETAM (250 MG) 250 MG TABLET PO SCH ×2 (08:19→17:23)
[2017-01-24] MEDS: MULTIVIT, IRON, MIN NO. 8, FA 1 TAB TABLET PO SCH (08:19)
[2017-01-24] MEDS: SERTRALINE HCL 25 MG TABLET PO SCH (08:19)
[2017-01-24] MEDS: CHOLECALCIFEROL 1,000 UNIT TABLET (VIT D3) PO SCH (08:19)
[2017-01-24] MEDS: ZINC SULFATE 220 MG CAPSULE PO SCH (08:20)
[2017-01-24] MEDS: MAGNESIUM OXIDE 400 MG TABLET PO SCH (08:20)
[2017-01-24] MEDS: PROSOURCE / PROSTAT (PYXIS) 30 ML UDC PO SCH (08:20)
[2017-01-24] MEDS: PANTOPRAZOLE 40 MG TABLET.DR PO SCH (08:20)
[2017-01-24] MEDS: MEMANTINE HCL 5 MG TABLET PO SCH ×2 (08:20→17:24)
[2017-01-24 15:44] VITALS: BP 115/59
--- NOTE | 2017-01-24 18:50 | NUR ---
MS RN CLOSING NOTES PT. IN STABLE CONDITION. ALL NEEDS MET AND ORDERS CARRIED OUT THROUGHOUT SHIFT. THERE WERE NO ACUTE CHANGES IN CONDITION DURING SHIFT. ALL SAFETY MEASURES IN PLACE. WILL ENDORSE TO NIGHTSHIFT NURSE FOR JUANIS
--- NOTE | 2017-01-24 19:40 | NUR ---
RN OPENING NOTES RECEIVED REPORT FROM DAYSHIFT RN. FOUND Pt AWAKE, RESTING IN BED. EQUAL CHEST RISE AND FALL. NO S/S OF ACUTE DISTRESS OR SOB NOTED. Pt IS A/OX2. IV ACCESS ON R HAND #18G, SL. SAFETY MEASURES IN PLACE. BED LOW, LOCKED, HOB ELEVATED, SIDE RAILS UP, AND CALL LIGHT WITHIN REACH. WILL CONTINUE TO MONITOR Pt THROUGHOUT THE NIGHT FOR SAFETY.
[2017-01-24 20:00] VITALS: BP 125/52
--- NOTE | 2017-01-24 20:00 | NUR ---
RN NOTES DAUGHTER ZACHARIAH VISITING AT BEDSIDE. REQUESTING TO SPEAK WITH THE DR ON-CALL IMMEDIATELY BECAUSE SHE HAS HAD NO COMMUNICATION WITH ANY DOCTOR FOR THE PAST 3 DAYS SINCE HER MOTHER, THE Pt, HAS BEEN ADMITTED HERE AT [facility]. AND ALSO WANTS HER MOTHER TO BE TRANSFERRED TO [facility] INSTEAD. WILL TRY TO GET DR. KWOK ON THE PHONE TO SPEAK WITH THE DAUGHTER IN REGARDS TO THE Pt.
--- NOTE | 2017-01-24 20:30 | NUR ---
RN NOTES PAGED DR. KWOK AND WAS ABLE TO GET HIM ON THE PHONE. HE SPOKE DIRECTLY WITH THE DAUGHTER ZACHARIAH. AFTER THEIR DISCUSSION, THEY BOTH AGREED THAT TRANSFERRING THE Pt TO [facility] WOULD BE BEST SINCE HER PRIMARY DR AND NEUROLOGIST BOTH WORK THEIR & ALL HER PREVIOUS RECORDS ARE ALSO AT [place]. WILL ENDORSE TO DAYSHIFT RN ABOUT TRANSFERRING Pt TO [facility] TOMORROW.
[2017-01-24] MEDS: ENOXAPARIN SODIUM 30 MG/0.3 ML DISP.SYRIN SQ SCH (20:41)
[2017-01-24 22:00] VITALS: BP 125/52
--- NOTE | 2017-01-25 06:37 | NUR ---
RN CLOSING NOTES NO SIGNIFICANT CHANGES DURING THE SHIFT. NO S/S OF ACUTE DISTRESS OR SOB NOTED DURING THE NIGHT. ALL NEEDS MET AND ATTENDED TO. SAFETY MEASURES IN PLACE. WILL ENDORSE TO DAYSHIFT RN FOR Pt's JUANIS.
--- NOTE | 2017-01-25 07:30 | NUR ---
MS RN AM NOTES RECEIVED PT. IN BED, ASLEEP, AROUSABLE TO NAME AND TOUCH, IS A/0 X2, ON RA, NO SOB OR SIGNS OF DISTRESS NOTED. BREATHING IS EVEN AND UNLABORED. NO SIGNS OF PAIN, RT HAND IV ACCESS, FLUSHES WELL, SITE CLEAR, SEE NURSING FLOWSHEET FOR SKIN ISSUES, [facility] SOFT DIET. BED IN LOW LOCKED POSITION, SIDE RAILS UP X3, CALL LIGHT WITHIN REACH. WILL CONTINUE TO MONITOR.
[2017-01-25 08:00] VITALS: BP 134/58
[2017-01-25] MEDS: ZINC SULFATE 220 MG CAPSULE PO SCH (08:47)
[2017-01-25] MEDS: MAGNESIUM OXIDE 400 MG TABLET PO SCH (08:47)
[2017-01-25] MEDS: PANTOPRAZOLE 40 MG TABLET.DR PO SCH (08:47)
[2017-01-25] MEDS: LEVETIRACETAM (250 MG) 250 MG TABLET PO SCH ×2 (08:47→17:23)
[2017-01-25] MEDS: MULTIVIT, IRON, MIN NO. 8, FA 1 TAB TABLET PO SCH (08:47)
[2017-01-25] MEDS: PROSOURCE / PROSTAT (PYXIS) 30 ML UDC PO SCH (08:48)
[2017-01-25] MEDS: CHOLECALCIFEROL 1,000 UNIT TABLET (VIT D3) PO SCH (08:48)
[2017-01-25] MEDS: MEMANTINE HCL 5 MG TABLET PO SCH ×2 (08:48→17:23)
[2017-01-25] MEDS: SERTRALINE HCL 25 MG TABLET PO SCH (08:50)
--- NOTE | 2017-01-25 09:30 | NUR ---
MS RN NOTES ADMINISTERED DUE MEDS.
--- NOTE | 2017-01-25 10:51 | NUR ---
MS RN NOTES FOR CM PLANNING PT'S DAUGHTER WANTS TO TRANSFER TO [facility]. DR. ARELI NATARAJAN.
[2017-01-25 16:00] VITALS: BP 128/63
[2017-01-25 18:00] VITALS: BP 128/63
--- NOTE | 2017-01-25 19:21 | NUR ---
MS RN DC NOTES PATIENT DISCHARGED TO [facility] PER MD IN STABLE CONDITION. PROVIDED DC INSTRUCTIONS, HEALTH TEACHINGS AND MED RECON LIST. PATIENT TO BE FOLLOW UP WITH PCP IN 1-2 WEEKS. RIGHT HAND 18G IV ACCESS REMOVED, CATH TIP COMPLETE, NO BLEEDING, DRESSING IN PLACE. ALL BELONGINGS CHECKED AND RETURNED. ALL PAPERWORKS SIGNED. PT PICKED UP BY [facility]. ACCOMPANIED TO LOBBY VIA WHEELCHAIR.
== END 2017-01-25 19:20 | DRG 64 ==
LOC: ER 11:24 → TELE 14:50 → MED 01-22 06:54
PROVIDERS: ADMIT Internal Medicine; ATTEND Internal Medicine
DX: I63.9 Cerebral infarction, unspecified (principal); N17.0 Acute kidney failure with tubular necrosis; I12.9 Hypertensive chronic kidney disease with stage 1 through stage 4 chronic kidney disease, or unspecified chronic kidney disease; E78.5 Hyperlipidemia, unspecified; E86.0 Dehydration; N18.9 Chronic kidney disease, unspecified; G40.909 Epilepsy, unspecified, not intractable, without status epilepticus; Z66 Do not resuscitate; F03.90 Unspecified dementia, unspecified severity, without behavioral disturbance, psychotic disturbance, mood disturbance, and anxiety; K21.9 Gastro-esophageal reflux disease without esophagitis; G20 Parkinson's disease; Z86.73 Personal history of transient ischemic attack (TIA), and cerebral infarction without residual deficits; Z79.899 Other long term (current) drug therapy; D63.8 Anemia in other chronic diseases classified elsewhere; Z85.820 Personal history of malignant melanoma of skin; Z96.649 Presence of unspecified artificial hip joint
CPT/HCPCS: 36415; 70450-TC; 71010-TC; 80048-TC; 80061-TC; 81000-TC; 82728-TC; 83540-TC; 83735-TC; 84100-TC; 84484-TC; 85025-TC; 85730-TC; 87081-TC; 92526; 92611-TC; 97001-TC; 97110-TC; 97530-TC; A4606; J1650; J3475; J7030; Z7610

== ENCOUNTER 2017-08-14 17:25 | Inpatient (IN) | payer MEDICARE, BC ==
[~2017-08-14] VITALS: Ht 165.1 cm; Wt 61.4 kg
[~2017-08-14 17:25] MED LIST changes: +ACET-868 PO; +AMIN30LI4 PO; +AMLO2.5T PO; +ASCO500T9 PO; -ATOR20TA PO; +ATOR40TA PO; +BISA10SU8 RC; -CARB1TAB21 PO; +CHOL100044 PO; +CLOP75TA15 PO; +ISOS120T9 PO; -ISOS60TA4 PO; +LEVE250T2 PO; -LEVE500T20 PO; +MAGN400O6 PO; +MAGN400T26 PO; +MECL-102 PO; +MULT-659 PO; +NA P133E RC; +SERT25TA5 PO; +ZINC220C8 PO
--- NOTE | 2017-08-14 17:50 | NUR ---
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
[2017-08-14] MEDS ORDERED: IV NS 0.9% 1,000 ML BAG IV ONE ×2 (18:30→21:30)
[2017-08-14 19:00] LABS: BASOPHILS % (AUTO) 0.2 % (0.0-2.0); EOSINOPHILS # (AUTO) 0.1 /CMM (0.0-0.7); EOSINOPHILS % (AUTO) 0.8 % (0.0-6.0); HEMATOCRIT 35 % (33-45); HEMOGLOBIN 12.2 g/dL (11.5-14.8); LYMPHOCYTES # (AUTO) 1.8 /CMM (0.8-4.8); LYMPHOCYTES % (AUTO) 19.8 % (20.0-44.0); MEAN CORPUSCULAR HEMOGLOBIN 31 PG (26.0-33.0); MEAN CORPUSCULAR HGB CONC 35 g/dl (31.0-36.0); MEAN CORPUSCULAR VOLUME 90 fL (82-100); MONOCYTES # (AUTO) 0.7 /CMM (0.1-1.30); MONOCYTES % (AUTO) 7.9 % (2.0-12.0); NEUTROPHILS # (AUTO) 6.2 /CMM (1.8-8.9); NEUTROPHILS % (AUTO) 71.3 % (43.0-81.0); PLATELET COUNT (AUTO) 194 /CMM (150-450); RDW COEFFICIENT OF VARIATION 13.4 (11.5-15.0); RED BLOOD CELL COUNT(AUTO) 3.91 MIL/uL (4.0-5.2); WHITE BLOOD COUNT (AUTO) 8.8 K/uL (4.3-11.0)
[2017-08-14 19:09] LABS: ALCOHOL, BLOOD < 3 mg/dL (0-0)
[2017-08-14 19:10] LABS: CALCIUM, SERUM 8.9 mg/dL (8.5-10.1); CARBON DIOXIDE 30 mmol/L (21-32); CHLORIDE 106 mmol/L (98-107); CREATININE 1.4 mg/dL (0.6-1.3); GLUCOSE 108 mg/dL (74-106); POTASSIUM 4.1 mmol/L (3.5-5.1); SODIUM SERUM 142 mmol/L (136-145); UREA NITROGEN, BLOOD 32 mg/dL (7-18)
[2017-08-14 19:11] LABS: SALICYLATE 1.4 mg/dL (2.8-20.0)
[2017-08-14 19:19] LABS: TROPONIN I 0.043 ng/mL (0.00-0.056)
[2017-08-14 19:22] LABS: ALANINE AMINOTRANSFERASE 23 U/L (12-78); ALBUMIN 3.3 g/dL (3.4-5.0); ALKALINE PHOSPHATASE 110 U/L (46-116); ASPARTATE AMINOTRANSFERASE 28 U/L (15-37); BILIRUBIN,DIRECT 0.1 mg/dL (0.0-0.2); BILIRUBIN,TOTAL 0.3 mg/dL (0.2-1.0); INR 1.05 (0.87-1.13); PROTHROMBIN TIME 10.9 SECS (9.5-12.7); TOTAL PROTEIN, SERUM 6.8 g/dL (6.4-8.2)
[2017-08-14 20:25] LABS: THYROID STIMULATING HORMONE 0.774 uIU/mL (0.358-3.74)
[2017-08-14 20:55] LABS: APPEARANCE,URINE Slightly Cloudy (CLEAR); BILIRUBIN,URINE Negative (NEGATIVE); BLOOD, URINE Small Ery/uL (NEGATIVE); COLOR,URINE Yellow (YELLOW); KETONES,URINE Negative (NEGATIVE); LEUKOCYTE ESTERASE ,URINE Trace (NEGATIVE); NITRITE, URINE Positive (NEGATIVE); PH,URINE 8.5 (5.0-8.0); PROTEIN,URINE >=300 mg/dl (NEGATIVE); UGLUCOSE Negative (NEGATIVE); UROBILINOGEN,URINE 0.2 EU/dL (0.2)
[2017-08-14 21:01] LABS: BACTERIA,URINE Moderate /HPF (None Seen); SQUAMOUS EPITHELIAL CELL,UR Few /HPF (None Seen)
[2017-08-14 21:02] LABS: URINE AMORPHOUS PHOSPHATES Moderate /HPF (None Seen)
--- NOTE | 2017-08-14 22:17 | NUR ---
PER DAUGHTER ZACHARIAH, PATIENT IS ON THICKENED LIQUIDS AND ON [facility] SOFT DIET. PER DAUGHTER, MEDS GIVEN ORALLY ARE CRUSHED AND GIVEN WITH APPLE SAUCE. WILL ENDORSE TO ADMITTING NURSE.
--- NOTE | 2017-08-14 22:41 | NUR ---
REPORT GIVEN TO LINDSAY COONEY FOR ADMISSION AND JUANIS.
[2017-08-14] MEDS ORDERED: NITROFURANTOIN/NITROFURAN MAC 100 MG CAPSULE ONE (22:45)
--- NOTE | 2017-08-14 22:50 | NUR ---
TRANSFERRED PATIENT TO MS FLOOR, NO INCIDEN NOTED. ENDORSED TO RN FOR JUANIS.
[2017-08-14] MEDS ORDERED: Z GUARD REMEDY 2 OZ OINT TP PRN (23:00)
[2017-08-14] MEDS ORDERED: NITROFURANTOIN/NITROFURAN MAC 100 MG CAPSULE PO ONE (23:00)
[2017-08-14] MEDS ORDERED: ONDANSETRON HCL/PF 4 MG/2 ML VIAL IVP PRN (23:00)
[2017-08-14] MEDS ORDERED: ACETAMINOPHEN 650 MG/SUPP.RECT RC PRN (23:00)
[2017-08-14] MEDS ORDERED: ENOXAPARIN SODIUM 40 MG/0.4 ML DISP.SYRIN SQ SCH (23:00)
[2017-08-14] MEDS ORDERED: MORPHINE SULFATE INJ 2 MG/ML DISP.SYRIN IV PRN (23:00)
[2017-08-14 23:30] VITALS: BP 140/75
--- NOTE | 2017-08-14 23:30 | NUR ---
RN NOTES NEW ADMISSION ARRIVED IN UNIT, ALERT AND ORIENTED X1, CALM, FLAT AFFECT, ABLE TO ANSWER SIMPLE QUESTIONS, NO SOB, ON AUSCULTATION, LUNG SOUNDS ARE CLEAR, SPO2 AT ROOM AIR 93%, PUT ON 2LPM VIA NC, SPO2 WENT UP TO 95%, DENIES ANY PAIN AT THIS TIME, ABDOMEN SOFT AND NON-TENDER, ACTIVE BOWEL SOUNDS, SKIN IS WARM TO TOUCH, RIGHT HAND PERIPHERAL LINE IS PATENT AND SECURED WITH DRESSING, INCONTINENT OF BOWEL AND BLADDER, HAD LOOSE, BROWNISH BOWEL MOVEMENT, NOTED EDEMA TO LEFT HAND DOWN TO THE FINGERS. GIVEN SPONGE BATH, SKIN ASSESSMENT PERFORMED, UNABLE TO ORIENT TO ROOM AND USE OF CALL LIGHT DUE TO CONFUSION. NEEDS ATTENDED, CALL LIGHT WITHIN REACH.
[2017-08-14] MEDS ORDERED: CEFTRIAXONE 1 G VIAL ONE (23:56)
[2017-08-14] MEDS ORDERED: ENOXAPARIN SODIUM 40 MG/0.4 ML DISP.SYRIN SQ ONE (23:57)
[2017-08-15] VITALS: BP_SYST 126; BP_SYST 140; BP_DIAS 60; BP_DIAS 75
[2017-08-15] MEDS: CEFTRIAXONE 1 G in IV D5W 50 ML IV SCH ×2 (00:19→22:10)
[2017-08-15] MEDS: IV NS 0.9% 1,000 ML IV PRN ×2 (00:26→12:56)
--- NOTE | 2017-08-15 03:12 | NUR ---
RN NOTES PATIENT RESTING COMFORTABLY IN BED, NO DISTRESS, NO SOB, ON 2LPM VIA NC, SPO2 AT 100%, WILL CONTINUE TO MONITOR
[2017-08-15 04:00] VITALS: BP 120/64
--- NOTE | 2017-08-15 06:35 | NUR ---
RN NOTES PATIENT IN BED, RESTING COMFORTABLY, NO SOB, RESPIRATION IS EVEN AND UNLABORED, ON 2LPM VIA NC, NO COMPLAIN OF PAIN, RIGHT HAND PERIPHERAL LINE IS PATENT AND INFUSING WELL. NO ADVERSE CHANGE OF CONDITION DURING SHIFT, NEEDS ATTENDED, CALL LIGHT WITHIN REACH.
[2017-08-15 07:06] LABS: BASOPHILS % (AUTO) 0.4 % (0.0-2.0); EOSINOPHILS # (AUTO) 0.1 /CMM (0.0-0.7); EOSINOPHILS % (AUTO) 1.4 % (0.0-6.0); HEMATOCRIT 32 % (33-45); HEMOGLOBIN 10.4 g/dL (11.5-14.8); LYMPHOCYTES % (AUTO) 31.3 % (20.0-44.0); MEAN CORPUSCULAR HEMOGLOBIN 30 PG (26.0-33.0); MEAN CORPUSCULAR HGB CONC 33 g/dl (31.0-36.0); MEAN CORPUSCULAR VOLUME 91 fL (82-100); MONOCYTES # (AUTO) 0.6 /CMM (0.1-1.30); MONOCYTES % (AUTO) 9.8 % (2.0-12.0); NEUTROPHILS # (AUTO) 3.7 /CMM (1.8-8.9); NEUTROPHILS % (AUTO) 57.1 % (43.0-81.0); PLATELET COUNT (AUTO) 152 /CMM (150-450); RDW COEFFICIENT OF VARIATION 14.4 (11.5-15.0); RED BLOOD CELL COUNT(AUTO) 3.46 MIL/uL (4.0-5.2); WHITE BLOOD COUNT (AUTO) 6.5 K/uL (4.3-11.0)
--- NOTE | 2017-08-15 07:35 | NUR ---
RENEWABLE ENERGY CONSULTANT OPENING NOTE RECEIVED BEDSIDE SBAR REPORT ON THE PATIENT. PATIENT IS A/O X1, CONFUSED. PATIENT IS IN BED, ASLEEP, EASILY AWAKEN. BED IS LOCKED IN LOWEST POSITION. SIDE RAILS UP X3, BED ALARM IS ON. CALL LIGHT IS WITHIN REACH. PATIENT EDUCATED TO CALL FOR ASSISTANCE USING THE CALL LIGHT VIA TEACH BACK METHOD. PATIENT UNABLE TO RETURN CORRECT DEMONSTRATION. PATIENT IS IN ROOM CLOSE TO NURSES STATION FOR SUPERVISION.WILL ROUND FREQUENTLY TO ASSESS FOR NEEDS. EXTERNAL TELE MONITOR READING SR 67BPM. CHEST IS RISING EQUALLY, BILATERALLY. DENIES PAIN/DISCOMFORT AT THIS TIME. IV FLUIDS RUNNING PRESCRIBED. SPO2 100% ON 1 L. WILL ATTEMPT TO TITRATE OXYGEN DOWN. ALL NEEDS ARE MET AT THIS TIME. WILL CONTINUE TO ASSESS/MONITOR THROUGHOUT THE SHIFT.
--- NOTE | 2017-08-15 07:40 | NUR ---
MS RN OPENING NOTE RECEIVED BEDSIDE SBAR REPORT ON THE PATIENT. PATIENT IS A/O X2, FORGETFUL OF SPECIFIC DATES, CONFUSED AND ANXIOUS AT TIMES. PATIENT IS IN BED, ASLEEP, EASILY AWAKEN. BED IS LOCKED IN LOWEST POSITION. SIDE RAILS UP X3, BED ALARM IS ON. CALL LIGHT IS WITHIN REACH. PATIENT EDUCATED TO CALL FOR ASSISTANCE USING THE CALL LIGHT VIA TEACH BACK METHOD. VERBALIZED UNDERSTANDING AND RETURNED DEMONSTRATION. CHEST IS RISING EQUALLY, BILATERALLY. DENIES PAIN/DISCOMFORT AT THIS TIME PATIENT HAS NO IV ACCESS. MD IS AWARE PER MANAGER INTERMEDIATE NURSES REPORT. WILL CLARIFY WITH DAYSHIFT MD. ALL NEEDS ARE MET AT THIS TIME. WILL CONTINUE TO ASSESS/MONITOR THROUGHOUT THE SHIFT.
[2017-08-15 07:42] LABS: CALCIUM, SERUM 8.2 mg/dL (8.5-10.1); CARBON DIOXIDE 26 mmol/L (21-32); CHLORIDE 111 mmol/L (98-107); CHOLESTEROL 157 mg/dL (<200); CREATININE 1.1 mg/dL (0.6-1.3); GLUCOSE 88 mg/dL (74-106); HDL CHOLESTEROL 47 mg/dL (40-60); LDL 82 mg/dL (0-99); MAGNESIUM 1.8 mg/dL (1.8-2.4); PHOSPHORUS 3.6 mg/dL (2.5-4.9); POTASSIUM 3.6 mmol/L (3.5-5.1); SODIUM SERUM 145 mmol/L (136-145); THYROID STIMULATING HORMONE 0.818 uIU/mL (0.358-3.74); TRIGLYCERIDES 110 mg/dL (30-150); UREA NITROGEN, BLOOD 27 mg/dL (7-18)
[2017-08-15 08:00] VITALS: BP 116/60
[2017-08-15] MEDS: ISOSORBIDE MONONITRATE (30MG) 30 MG TAB.SR.24H PO SCH (09:00)
[2017-08-15] MEDS: PANTOPRAZOLE 40 MG VIAL IV SCH (09:43)
[2017-08-15] MEDS: LEVETIRACETAM (250 MG) 250 MG TABLET PO SCH ×2 (09:44→17:06)
[2017-08-15] MEDS: CLOPIDOGREL BISULFATE 75 MG TABLET PO SCH (09:44)
--- NOTE | 2017-08-15 09:46 | NUR ---
MACHINE SHORTHAND TEACHER NOTE PATIENT;S DAUGHTER AT THE BEDSIDE. REFUSED ISOSORBIDE MONONITRATE STATING SHE IS AFRAID THE PATIENT WILL PRESENT WITH DECREASED BLOOD PRESSURE AN EFFECT OF THE MEDICATION. PATIENT'S BLOOD PRESSURE IS 110/60MM HG.
--- NOTE | 2017-08-15 12:00 | NUR ---
MS RN NOTE PATIENT'S BOOST IS NOT ON THE FLOOR. CALLED THE NUTRITION TO DELIVER.
[2017-08-15] MEDS: BOOST PLUS FOOD-CHOCLATE 237 ML BOX PO SCH ×2 (12:53→17:06)
--- NOTE | 2017-08-15 16:52 | NUR ---
MS CO CHAIRMAN FOR JUANIS NOTE SBAR REPORT GIVEN TO EROS MORALES ON THE PATIENT. PER CHARGE NURSE MAU PATIENT TO BE TRANSFERRED UNDER THE CARE OF EROS MORALES. PATIENT IS A/O X1, CONFUSED. PATIENT IS IN BED, ASLEEP, EASILY AWAKEN. BED IS LOCKED IN LOWEST POSITION. SIDE RAILS UP X3, BED ALARM IS ON. CALL LIGHT IS WITHIN REACH. PATIENT EDUCATED TO CALL FOR ASSISTANCE USING THE CALL LIGHT VIA TEACH BACK METHOD. PATIENT UNABLE TO RETURN CORRECT DEMONSTRATION. PATIENT IS IN ROOM CLOSE TO NURSES STATION FOR SUPERVISION. RN ROUNDED FREQUENTLY TO ASSESS FOR NEEDS. PATIENT REPOSITIONED EVERY 2HRS TO MAINTAIN FUNCTIONAL ALIGNMENT OF THE LIMBS AND MAINTAIN SKIN INTEGRITY. PATIENT'S TREATMENT PLAN DISCUSSED WITH THE DAUGHTER ZACHARIAH. ALL DUE MEDICATIONS ADMINISTERED PRESCRIBED. IV FLUIDS RUNNING PRESCRIBED. PATIENT IS ON 1L OXYGEN WITH SATURATION OF 96%. CHEST IS RISING EQUALLY, BILATERALLY. DENIES PAIN/DISCOMFORT AT THIS TIME. ALL NEEDS ARE MET AT THIS TIME. ENDORSED TO EROS MORALES FOR JUANIS.
--- NOTE | 2017-08-15 18:31 | NUR ---
RN OPENING NOTES. ENDORSEMENT RECEIVED. PATIENT IS A/OX1, CONFUSED, RESTING BUT EASILY WOKEN. PT NC 1LPM WITH NO SOB OR OBVIOUS DISTRESS. PT UNABLE TO REPORT PAIN BUT APPEARS WITHOUT DISTRESS RO DISCOMFORT. PT BRIEFED ON TODAY'S POC BUT ABLE TO VERBALIZE UNDERSTANDING. PATIENT TO BE REPOSITIONED Q2HR. BED IN LOWEST LOCKED POSITION WITH CALL LOU WITHIN REACH. WILL CONTINUE TO MONITOR. Addendum: 08/15/17 at 1838 by CARMEN RYAN RN TIME AMENDMENT, 1121
--- NOTE | 2017-08-15 18:38 | NUR ---
MS RN CLOSING NOTES. PT IS CURRENTLY RECALLS TIME, DATE AND LOCATION BUT WITH FURTHER QUESTIONING RECALL IS POOR. PT WITH NC 1LPM AND NO SOB. PT HAS IVC AT R HAND INTACT AND OPERATIONAL. PT REPORTS NO PAIN. ALL DAY NURSE DUTIES ATTENDED TO. PT WITHOUT CONCERN OR COMPLAINT AT THIS TIME. WILL ENDORSE TO NIGHT NURSE.
[2017-08-15 20:00] VITALS: BP 109/55
--- NOTE | 2017-08-15 20:00 | NUR ---
RN NOTES PATIENT IN BED, ALERT AND ORIENTED X1, ABLE TO ANSWER SIMPLE QUESTIONS AND VERBALIZE NEEDS. NO SOB, TOLERATING 2LPM VIA NC, SPO2 98%, DENIES ANY PAIN AT THIS TIME, LUNG SOUNDS ARE CLEAR, ABDOMEN SOFT AND NON-TENDER, PATIENT ON PUREED DIET AND ON ASPIRATION PRECAUTION. RIGHT HAND PERIPHERAL LINE IS PATENT AND INFUSING WELL. KEPT SAFE AND COMFORTABLE, CALL LIGHT WITHIN REACH.
[2017-08-15] MEDS ORDERED: ENOXAPARIN SODIUM 40 MG/0.4 ML DISP.SYRIN SQ SCH (21:00)
[2017-08-15] MEDS ORDERED: ATORVASTATIN 40 MG TABLET PO SCH (22:00)
[2017-08-16] MEDS: IV NS 0.9% 1,000 ML IV PRN (03:15)
--- NOTE | 2017-08-16 06:43 | NUR ---
RN NOTES PATIENT IN BED, ALERT AND AWAKE, NO SOB, TOLERATING 2LPM VIA NC, PROVIDED GOOD PERINEAL CARE, TURNED AND REPOSITIONED. ALL NEEDS ATTENDED, CALL LIGHT WITHIN REACH.
[2017-08-16 08:00] VITALS: BP 134/63
[2017-08-16] MEDS: BOOST PLUS FOOD-CHOCLATE 237 ML BOX PO SCH ×2 (08:00→17:17)
[2017-08-16 08:02] LABS: BASOPHILS % (AUTO) 0.3 % (0.0-2.0); EOSINOPHILS # (AUTO) 0.2 /CMM (0.0-0.7); EOSINOPHILS % (AUTO) 2.9 % (0.0-6.0); HEMATOCRIT 30 % (33-45); HEMOGLOBIN 9.9 g/dL (11.5-14.8); LYMPHOCYTES # (AUTO) 1.9 /CMM (0.8-4.8); LYMPHOCYTES % (AUTO) 25.3 % (20.0-44.0); MEAN CORPUSCULAR HEMOGLOBIN 30 PG (26.0-33.0); MEAN CORPUSCULAR HGB CONC 33 g/dl (31.0-36.0); MEAN CORPUSCULAR VOLUME 92 fL (82-100); MONOCYTES # (AUTO) 0.5 /CMM (0.1-1.30); MONOCYTES % (AUTO) 7.1 % (2.0-12.0); NEUTROPHILS # (AUTO) 4.9 /CMM (1.8-8.9); NEUTROPHILS % (AUTO) 64.4 % (43.0-81.0); PLATELET COUNT (AUTO) 151 /CMM (150-450); RDW COEFFICIENT OF VARIATION 14.2 (11.5-15.0); WHITE BLOOD COUNT (AUTO) 7.6 K/uL (4.3-11.0)
[2017-08-16 08:32] LABS: CALCIUM, SERUM 7.9 mg/dL (8.5-10.1); CARBON DIOXIDE 25 mmol/L (21-32); CHLORIDE 111 mmol/L (98-107); CREATININE 0.9 mg/dL (0.6-1.3); GLUCOSE 81 mg/dL (74-106); MAGNESIUM 1.6 mg/dL (1.8-2.4); PHOSPHORUS 3.1 mg/dL (2.5-4.9); POTASSIUM 3.4 mmol/L (3.5-5.1); SODIUM SERUM 145 mmol/L (136-145); UREA NITROGEN, BLOOD 20 mg/dL (7-18)
[2017-08-16] MEDS: ISOSORBIDE MONONITRATE (30MG) 30 MG TAB.SR.24H PO SCH (08:45)
[2017-08-16] MEDS: CLOPIDOGREL BISULFATE 75 MG TABLET PO SCH (08:46)
[2017-08-16] MEDS: PANTOPRAZOLE 40 MG VIAL IV SCH (08:46)
[2017-08-16] MEDS: LEVETIRACETAM (250 MG) 250 MG TABLET PO SCH ×2 (08:46→17:17)
--- NOTE | 2017-08-16 10:11 | NUR ---
RN OPENING NOTES RECEIVED PT. A/OX1. NO S/S OF RESPIRATORY DISTRESS/SOB. PT DOES NOT APPEAR NOR HAS C/O PAIN AT THIS TIME. PT IS ON RA, O2 SAT WNL. PT IS TO HAVE BOTH ST AND PT EVAL. IV ACCESS LOCATED ON RIGHT HAND 22G INFUSING NS AT 75 ML/HR. SAFETY MEASURES IN PLACE, [place] LIGHT WITHIN REACH. WILL CONTINUE TO MONITOR.
[2017-08-16] MEDS ORDERED: SULF1TAB48 PO (10:32)
[2017-08-16] MEDS ORDERED: POTASSIUM CHLORIDE 20 MEQ POWDER PACKET PO SCH (11:00)
[2017-08-16] MEDS: Magnesium 1GM/D5W 100ML PREMIX 100 ML IV SCH ×2 (12:00→13:26)
--- NOTE | 2017-08-16 13:00 | NUR ---
RN NOTES PT DISCHARGE DELAYED PER CONTACT WITH THE [facility]. PT'S BLOOD PRESSURE IS TOO LOW AT 98/62 FOR ADMIT AT THIS TIME. WILL CONTINUE TO MONITOR BP. POSSIBLE TRANSFER TO THE [facility] AT 1700 PENDING INCREASE IN BLOOD PRESSURE.
[2017-08-16 16:00] VITALS: BP 109/50
--- NOTE | 2017-08-16 18:11 | NUR ---
DISCHARGE NOTE PT DISCHARGED TO [facility]. PT'S VSS, BP AT OR AROUND BASELINE. PT WAS UNABLE TO SIGN DISCHARGE PAPERWORK AND BELONGINGS SHEET, WITNESSED AND SIGNED BY AN ADDITIONAL RN. PRESCRIPTION GIVEN TO PT AND COPIED AND PLACED IN CHART. IV ACCESS REMOVED. ID BAND REMOVED. PT IS ON FOR COMFORT. REPORT GIVEN TO CARLEY FROM [facility]. PT WAS TRANSPORTED VIA AMBULANCE AND PARAMEDICS.
== END 2017-08-16 18:15 | DRG 689 ==
LOC: ER 17:30 → MED 22:43 → TELE 08-15 01:52 → MED 08-15 09:38
DX: N39.0 Urinary tract infection, site not specified (principal); G93.41 Metabolic encephalopathy; N17.9 Acute kidney failure, unspecified; F03.90 Unspecified dementia, unspecified severity, without behavioral disturbance, psychotic disturbance, mood disturbance, and anxiety; E86.0 Dehydration; G40.909 Epilepsy, unspecified, not intractable, without status epilepticus; E78.5 Hyperlipidemia, unspecified; I10 Essential (primary) hypertension; K21.9 Gastro-esophageal reflux disease without esophagitis; K59.00 Constipation, unspecified; Z86.73 Personal history of transient ischemic attack (TIA), and cerebral infarction without residual deficits; Z87.440 Personal history of urinary (tract) infections; Z96.649 Presence of unspecified artificial hip joint; B96.4 Proteus (mirabilis) (morganii) as the cause of diseases classified elsewhere; R53.81 Other malaise; Z85.820 Personal history of malignant melanoma of skin; Z79.899 Other long term (current) drug therapy
CPT/HCPCS: 36415; 70450-TC; 71010-TC; 80048-TC; 80061-TC; 80076-TC; 80305; 81000-TC; 82140-TC; 83735-TC; 84100-TC; 84443-TC; 84484-TC; 85025-TC; 85730-TC; 87081-TC; 87086-TC; 87186-TC; 92611-TC; C9113; G0480; J0696; J1650; J3475; J7030; J7040; J7060

== ENCOUNTER 2018-01-01 10:38 | Emergency (ER) | payer MEDICARE, BC ==
[~2018-01-01] VITALS: Ht 160 cm; Wt 63.7 kg
[~2018-01-01 10:38] MED LIST changes: -AMLO2.5T PO; +AMLO2.5T3 PO; +SULF1TAB48 PO
--- NOTE | 2018-01-01 10:38 | NUR ---
CODE STROKE ACTIVATED-- MD YOUNG AT [facility]
--- NOTE | 2018-01-01 10:38 | NUR ---
PT TO ED ROOM 09, JULIET. R SIDED FACIAL DROOP NOTICED THIS MORNING BY CARE STAFF, LAST KNOWN WELLS TIME 12/31/17 2100. CHANGED TO GOWN, CONNECTED TO MONITOR. SIDE RAISL UP. HOB ELEVATED. CONNECTED TO MONITOR. HANNAH ROSADO AT BEDSIDE. CODE STROKE ACTIVATED.
[2018-01-01 10:52] LABS: HEMATOCRIT 34 % (33-45); HEMOGLOBIN 11.7 g/dL (11.5-14.8); MEAN CORPUSCULAR VOLUME 90 fL (82-100); RED BLOOD CELL COUNT(AUTO) 3.74 MIL/uL (4.0-5.2); WHITE BLOOD COUNT (AUTO) 7.9 K/uL (4.3-11.0)
--- NOTE | 2018-01-01 10:52 | NUR ---
EKG IN PROGRESS
[2018-01-01 10:53] LABS: BASOPHILS # (AUTO) 0.1 /CMM (0.0-0.2); BASOPHILS % (AUTO) 0.9 % (0.0-2.0); EOSINOPHILS % (AUTO) 2.7 % (0.0-6.0); LYMPHOCYTES # (AUTO) 2.6 /CMM (0.8-4.8); LYMPHOCYTES % (AUTO) 33.2 % (20.0-44.0); MEAN CORPUSCULAR HGB CONC 35 g/dl (31.0-36.0); MONOCYTES # (AUTO) 0.5 /CMM (0.1-1.30); MONOCYTES % (AUTO) 6.2 % (2.0-12.0); NEUTROPHILS # (AUTO) 4.5 /CMM (1.8-8.9); PLATELET COUNT (AUTO) 219 /CMM (150-450); RDW COEFFICIENT OF VARIATION 13.6 (11.5-15.0)
[2018-01-01 11:00] LABS: CALCIUM, SERUM 8.8 mg/dL (8.5-10.1); CARBON DIOXIDE 29 mmol/L (21-32); CHLORIDE 106 mmol/L (98-107); CREATININE 1.1 mg/dL (0.6-1.3); GLUCOSE 97 mg/dL (74-106); POTASSIUM 4.2 mmol/L (3.5-5.1); SODIUM SERUM 140 mmol/L (136-145); UREA NITROGEN, BLOOD 24 mg/dL (7-18)
[2018-01-01] MEDS ORDERED: IV NS 0.9% 500 ML BAG IV ONE (11:00)
[2018-01-01 11:04] LABS: INR 0.97 (0.85-1.15)
[2018-01-01 11:08] LABS: TROPONIN I < 0.017 ng/mL (0.00-0.056)
[2018-01-01 11:09] LABS: CHOLESTEROL 212 mg/dL (<200); HDL CHOLESTEROL 50 mg/dL (40-60); LDL 127 mg/dL (0-99); TRIGLYCERIDES 157 mg/dL (30-150)
--- NOTE | 2018-01-01 11:10 | NUR ---
Nissa Ramos 22 DC'ED
[2018-01-01] MEDS ORDERED: IOHEXOL-350 100 ML VIAL IV ONE (11:26)
[2018-01-01] MEDS ORDERED: VITA1TAB20 PO (11:33)
[2018-01-01] MEDS ORDERED: ESCI5TAB PO (11:33)
[2018-01-01] MEDS ORDERED: MEMA28CA PO (11:33)
[2018-01-01] MEDS ORDERED: ASPIRIN 300 MG/SUPP.RECT RC ONE ×2 (11:37→12:00)
--- NOTE | 2018-01-01 11:45 | NUR ---
Female bobbin presser accompanied female patient for ASPIRIN 300MG RC. Patient tolerated well.
--- NOTE | 2018-01-01 12:20 | NUR ---
Patient is resting comfortably in bed with eyes closed. Easily aroused. VSS. Family members at bedside.
--- NOTE | 2018-01-01 12:52 | NUR ---
Patient is resting comfortably in bed with eyes closed. Easily aroused. VSS. DR YOUNG AT BEDSIDE UPDATING THE FAMILY ON TRANSFER STATUS.
--- NOTE | 2018-01-01 13:00 | NUR ---
SPOKE WITH [facility] AT [place], PT ACCEPTED WAITING ON BED.
--- NOTE | 2018-01-01 13:25 | NUR ---
Patient is in bed. All needs attended. VSS. Awaiting for transfer info.
--- NOTE | 2018-01-01 13:50 | NUR ---
CALLED D[facility], STILL WAITING FOR PATIENT BED.
--- NOTE | 2018-01-01 14:31 | NUR ---
Christiana called with Bed 503-A Give Report [phone]
--- NOTE | 2018-01-01 14:38 | NUR ---
Kizzy called [facility] eta [id number] Trip # [id number]
--- NOTE | 2018-01-01 15:14 | NUR ---
REPORT GIVEN TO [facility] [phone]. ROOM 503-A.
[2018-01-01 17:00] VITALS: BP 132/63
--- NOTE | 2018-01-01 17:31 | NUR ---
REPORT GIVEN TO [facility] # [phone].
== END 2018-01-01 17:35 | disposition short-term general hospital (02) ==
LOC: ER 10:39
DX: I63.9 Cerebral infarction, unspecified (principal); I10 Essential (primary) hypertension; E78.5 Hyperlipidemia, unspecified; G40.909 Epilepsy, unspecified, not intractable, without status epilepticus; Z86.73 Personal history of transient ischemic attack (TIA), and cerebral infarction without residual deficits
CPT/HCPCS: 36415; 70450-TC; 70496-TC; 70498-TC; 71045-TC; 80048-TC; 80061-TC; 82962-TC; 84484-TC; 85025-TC; 85730-TC; 86850-TC; A4606; Q9967; Z7610